=== PATIENT | male | born 1970 | race Caucasian/White ===

== ENCOUNTER 2024-01-09 09:21 | Emergency (ER) | payer OTHER, SELFPAY ==
[2024-01-09 09:28] VITALS: BP 132/91; PULSE 92; RESP 18; TEMP 37.2; O2SAT 95; BMI 31.4
--- NOTE | 2024-01-09 11:28 | ED.GENADULT ---
HPI - General Adult General Chief complaint: Back Injury/Pain Stated complaint: back pain, worse since sunday Time Seen by Provider: 01/09/24 11:01 Source: patient and family Mode of arrival: ambulatory Limitations: no limitations History of Present Illness HPI narrative: 53-year-old male presenting today with low back pain. Pain was present approximately 1 month ago and started when he was playing golf 1 day. He felt immediate discomfort when he swung his club. The pain has been tolerable however, in the last 4 days has gotten worse. Four days ago he was in a golf cart that went over a bump and he felt immediate discomfort. Pain is located in the low back and radiates into the left lower back. He feels tingling going down his leg. He denies any weakness of the lower extremity. He denies any loss of bowel or bladder control. He denies any fevers or chills. He has not been vomiting. He denies any unintentional weight loss. He denies changes in his appetite. He denies tripping or having difficulty walking. Patient does smoke. Related Data Previous Rx's ?Medication ?Instructions ?Recorded hydrocodone 5 mg-acetaminophen 325 1 tab PO Q8H PRN pain #10 tabs 01/09/24 mg tablet methylprednisolone 4 mg tablets in See Rx Instructions PO .COMPLEX 01/09/24 a dose pack (Medrol (Filiberto)) #21 ea Allergies Allergy/AdvReac Type Severity Reaction Status Date / Time pollen extracts Allergy Verified 01/09/24 09:33 Review of Systems Status of ROS: Reports: 10 or more systems reviewed and unremarkable except as noted in History and below PFSH PFSH Social History Smoking Status: Current every day smoker What tobacco products do you use: cigarettes How often do you have a drink containing alcohol: 2-3 times a week How many standard drinks containing alcohol do you have on a typical day: 1 or 2 How often do you have six or more drinks on one occasion: Never AUDIT-C Alcohol total score: 3 Non-prescribed substance use: denies use Exam Narrative: Exam Narrative: Well-nourished well-developed patient, clearly uncomfortable. Alert and oriented. Answers questions appropriately. Mood and affect are appropriate. Thoughts are goal oriented and rational. No tangential or magical thinking noted. Patient speaks in full sentences without needing to catch his breath. HEENT: Normocephalic atraumatic. Pupils are equally round reactive to light. Extraocular muscles are intact. Conjunctivae are moist without any icterus noted. Moist mucous membranes. Cardiovascular: Heart is regular rate and rhythm . Lungs: Clear to auscultation bilaterally. No pain with deep inspiration. No CVA tenderness. Extremities: Bilateral lower extremities show trace pretibial edema. Skin: Well perfused without any obvious rashes. A straight leg test is negative. Back: Normal appearance. Patient does not have any tenderness over the thoracic or lumbar spine. He has minimal tenderness over the left paraspinal musculature of the lumbar spine. Strength is 5/5 of the bilateral lower extremities both proximal and distal muscle groups, reflexes are 2+ symmetric at the knee there is no hyperreflexia noted. His gait although he appears uncomfortable, is normal without shuffling and with normal elevation of the feet. Const: Vital Signs, click to edit/add: Vital Signs - 24 hr 01/09/24 09:28 Temperature 98.9 F Pulse Rate [Pulse Oximeter] 92 Respiratory Rate 18 Blood Pressure [Ri t Upper Arm] 132/91 H Pulse Oximetry 95 Oxygen Delivery Me thod Room Air Course Vital Signs Vital signs: Initial Vital Signs Temperature 98.9 F 01/09/24 09:28 Temperature Source Oral 01/09/24 09:28 Pulse Rate 92 01/09/24 09:28 Respiratory Rate 18 01/09/24 09:28 Blood Pressure 132/91 H 01/09/24 09:28 Blood Pressure Mean 104 01/09/24 09:28 Blood Pressure Position Sitting 01/09/24 09:28 Pulse Oximetry 95 01/09/24 09:28 Oxygen Delivery Method Room Air 01/09/24 09:28 Vital Signs Temperature 98.9 F 01/09/24 09:28 Pulse Rate 92 01/09/24 09:28 Respiratory Rate 18 01/09/24 09:28 Blood Pressure 132/91 H 01/09/24 09:28 Pulse Oximetry 95 01/09/24 09:28 Oxygen Delivery Method Room Air 01/09/24 09:28 Temperature 98.9 F 01/09/24 09:28 Pulse Rate 92 01/09/24 09:28 Respiratory Rate 18 01/09/24 09:28 Blood Pressure 132/91 H 01/09/24 09:28 Pulse Oximetry 95 01/09/24 09:28 Oxygen Delivery Method Room Air 01/09/24 09:28 Medical Decision Making MDM Narrative Medical decision making narrative: 53-year-old male with low back pain with lumbar radiculopathy. At this point, there are no red flags noted on his examination or history. I think that imaging is not indicated at this time. Will treat with steroid taper and [place] as needed, especially to help him sleep at night. I would like for him to follow up with primary care provider this week. If he is getting worse, and we discussed any red flag symptoms, he needs to return to the emergency room. Patient was in agreement with everything we discussed and had no other questions. Discharge Plan Discharge Clinical Impression: Lumbar radiculopathy Patient Disposition: Home, Self-Care Condition: Stable Instructions: Lumbar Radiculopathy (ED) Additional Instructions: Take all steroid as prescribed. Take pain medications as needed. Pain medications can cause constipation and dizziness, do not operate heavy machinery when taking the pain medications. This medication also contains Tylenol, do not take more than 4000 mg of Tylenol, in total, per day. Follow-up with your primary care provider this coming week. Return to the emergency department if you develop worsening pain, fever, vomiting, inability to control your bladder or bowels, or worsening symptoms such as pain. Prescriptions: New methylprednisolone [Medrol (Filiberto)] 4 mg tablets,dose pack See Rx Instructions .ROUTE .COMPLEX Qty: 21 0RF Rx Instructions: orally per package directions hydrocodone-acetaminophen 5-325 mg tablet 1 tab PO Q8H PRN (Reason: pain) Qty: 10 0RF Rx Instructions: Can take 1-2 tablets at a time. Follow Up/Referrals: Provider,Not a Local [Primary Care Provider] - Stand Alone Forms: [employer] Info Instructions
== END 2024-01-09 11:37 | disposition home or self-care (01) ==
PROVIDERS: Emergency Provider Family Medicine
DX: M54.16 Radiculopathy, lumbar region (principal)
CPT/HCPCS: 99283; 99284